=== PATIENT | female | born 1970 | race Caucasian/White ===

== ENCOUNTER 2017-01-05 19:17 | Emergency (ER) | payer OTHER ==
[2017-01-05 19:49] VITALS: TEMP 98.3; BMI 30.4
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
[2017-01-05] MEDS ORDERED: amLODIPine BESYLATE 5 MG TABLET (FP) PO ONE (21:42)
[2017-01-05] MEDS ORDERED: METOPROLOL SUCCINATE 100 MG TAB.SR.24H (FP) PO ONE (21:42)
[2017-01-05] MEDS ORDERED: HYDROCHLOROTHIAZIDE 25 MG TABLET (FP) PO ONE (21:43)
[2017-01-05] MEDS ORDERED: LISINOPRIL 20 MG TABLET (FP) PO ONE (21:43)
[2017-01-05] MEDS ORDERED: amLODIPine BESYLATE 5 MG TABLET (FP) ONE (21:56)
[2017-01-05] MEDS ORDERED: HYDROCHLOROTHIAZIDE 25 MG TABLET (FP) ONE (21:56)
[2017-01-05] MEDS ORDERED: LISINOPRIL 20 MG TABLET (FP) ONE (21:56)
[2017-01-05] MEDS ORDERED: METOPROLOL SUCCINATE 50 MG TAB.SR.24H (FP) ONE (21:56)
[2017-01-05] MEDS ORDERED: ACETAMINOPHEN 500 MG TABLET (FP) PO ONE (23:42)
[2017-01-06] MEDS ORDERED: ACETAMINOPHEN 325 MG TABLET (FP) ONE (00:08)
[2017-01-06 00:19] VITALS: BP 167/89; PULSE 78
--- NOTE | 2017-01-08 17:34 | EKG ---
Test Reason : Blood Pressure : / mmHG Vent. Rate : 077 BPM Atrial Rate : 077 BPM P-R Int : 188 ms QRS Dur : 094 ms QT Int : 436 ms P-R-T Axes : 028 -17 097 degrees QTc Int : 493 ms NORMAL SINUS RHYTHM SEPTAL INFARCT , AGE UNDETERMINED T WAVE ABNORMALITY, CONSIDER LATERAL ISCHEMIA ABNORMAL ECG WHEN COMPARED WITH ECG OF 02-NOV-2013 18:18, SEPTAL INFARCT IS NOW PRESENT T WAVE INVERSION LESS EVIDENT IN LATERAL LEADS Confirmed by SYBIL WHITTAKER MD ([id number]) on 01/08/2017 5:34:03 PM Referred By: Confirmed By:SYBIL WHITTAKER MD
== END 2017-01-06 00:24 | disposition home or self-care (01) ==
LOC: JER 19:17
DX: I10 Essential (primary) hypertension (principal); J30.2 Other seasonal allergic rhinitis
CPT/HCPCS: 93005; 93010; 99282-25

== ENCOUNTER 2017-12-03 08:59 | Emergency (ER) | payer OTHER ==
[2017-12-03 09:05] VITALS: BP 163/92; PULSE 55; TEMP 98.2; BMI 29.2
[2017-12-03] MEDS ORDERED: KETOROLAC TROMETHAMINE 60 MG/2 ML VIAL IM ONE (09:46)
[2017-12-03] MEDS ORDERED: KETOROLAC TROMETHAMINE 60 MG/2 ML VIAL ONE (09:48)
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
== END 2017-12-03 10:11 | disposition home or self-care (01) ==
LOC: JERFT 08:59
PROC: 3E0233Z Introduction of Anti-inflammatory into Muscle, Percutaneous Approach (ICD-10-PCS; principal; 2017-12-03)
DX: S13.4XXA Sprain of ligaments of cervical spine, initial encounter (principal); V43.52XA Car driver injured in collision with other type car in traffic accident, initial encounter; Y92.414 Local residential or business street as the place of occurrence of the external cause; W22.11XA Striking against or struck by driver side automobile airbag, initial encounter; Y93.89 Activity, other specified; Y99.8 Other external cause status; I10 Essential (primary) hypertension; E11.9 Type 2 diabetes mellitus without complications; Z87.09 Personal history of other diseases of the respiratory system; Z87.891 Personal history of nicotine dependence
CPT/HCPCS: 99281-25

== ENCOUNTER 2019-01-06 22:01 | Emergency (ER) | payer OTHER ==
[2019-01-06 22:15] VITALS: TEMP 98; BMI 28.8
[2019-01-06] MEDS ORDERED: ACETAMINOPHEN 1000 MG/100 ML VIAL (NON FORMULARY) IVPB ONE (22:36)
[2019-01-06] MEDS ORDERED: LABETALOL HCL 5 MG/1 ML (100MG/20 ML VIAL) IVPUSH ONE (22:48)
[2019-01-06] MEDS ORDERED: ACETAMINOPHEN INJECTION 100 ML IVPB ONE (22:53)
[2019-01-06] MEDS ORDERED: LABETALOL HCL 5 MG/1 ML (200MG/40ML VIAL) IVPB ONE (22:54)
[2019-01-06 23:01] LABS: BASO % 1.8 % (0-2.0); EOS % 5.5 % (0-4.5); HEMATOCRIT 40.7 % (32.4-45.2); HEMOGLOBIN 13.3 GM/dL (10.7-15.3); LYMPH % 34.5 % (8-40); MCH 26.9 pg (25.7-33.7); MCHC 32.5 g/dl (32.0-36.0); MEAN CELL VOLUME 82.7 fl (80-96); MEAN PLT VOLUME 7.6 fl (7.5-11.1); MONO % 4.8 % (3.8-10.2); NEUT % 53.4 % (42.8-82.8); PLATELET COUNT 310 K/MM3 (134-434); RBC 4.93 M/mm3 (3.60-5.2); RDW 14.2 % (11.6-15.6); WHITE BLOOD COUNT 9.5 K/mm3 (4.0-10.0)
--- NOTE | 2019-01-06 23:05 | PDOC ---
Documentation entered by Jose Alberto Campos SCRIBE, acting as scribe for Chuck Ward MD. Chuck Ward MD: This documentation has been prepared by the Beth baker Nirvannie, SCRIBE, under my direction and personally reviewed by me in its entirety. I confirm that the documentation accurately reflects all work, treatment, procedures, and medical decision making performed by me. Attending Attestation - Resident Resident Name: DanielkarelBraden - ED Attending Attestation I have performed the following: I have examined & evaluated the patient, The case was reviewed & discussed with the resident, I agree w/resident's findings & plan - HPI HPI: 01/06/19 22:50 The patient is a 48 year old female, with a significant past medical history of DM and HTN (noncompliant with medications), who presents to the emergency department with, chest pain, lower back pain, and headache. She denies any LOC or change in strength/sensation. Allergies: NKDA Social history: Smoker. - Physicial Exam PE: 01/07/19 00:32 GENERAL: Well-appearing, well-nourished. No apparent distress. HEENT:Normocephalic, atraumatic. PERRL, EOM intact, L sided facial droop including forehead CARDIOVASCULAR: Normal S1, S2. Regular rate and rhythm. PULMONARY: Clear to auscultation bilaterally. ABDOMEN: Soft, non-distended, non-tender, no CVAT EXTREMITIES: Normal ROM in all four extremities. Strength 5/5, No gross deformities. SKIN: Warm, dry. No rash NEUROLOGICAL: No focal neurological deficits. 01/07/19 00:35 - Medical Decision Making 01/07/19 00:36 48F with notably high BP c/o chest pain, back pain, headache, ddx includes all end organ sequelae of acute profound hypertension including cerebral hemorrage, ACS, aortic dissection f/u labs to eval for end organ damage including trops f/u cta cap f/u ct b analgesia dispo per clinical course 01/07/19 04:22 No signs of end organ damage on evaluation BP improved with analgesia Will follow up with PCP in 3 days
[2019-01-06 23:16] LABS: INR 0.97 (0.83-1.09); PROTHROMBIN TIME (PATIENT) 11.4 SEC (9.7-13.0)
--- NOTE | 2019-01-06 23:23 | PDOC ---
History of Present Illness - General Chief Complaint: Chest Pain Stated Complaint: LOWER BACK PAIN Time Seen by Provider: 01/06/19 22:16 History Source: Patient Exam Limitations: No Limitations - History of Present Illness Initial Comments: 01/06/19 23:18 48F with a PMH of HTN and DM (last taken medications in May 2018) who presents to the ER with complaints of sudden onset CP with radiation to her back, headache, and L arm numbness. The patient states that she woke up yesterday morning with chest pain that was L sided and radiated to her thoracic and lumbar spine. This pain continued to worsen until her presentation today. She also admits to L arm numbness since this morning. The patient states that she also developed a headache in this time. She denies SOB, fever, chills, nausea, vomiting. Past History - Past Medical History Allergies/Adverse Reactions: Allergies Allergy/AdvReac Type Severity Reaction Status Date / Time No Known Allergies Allergy Verified 01/06/19 22:15 Home Medications: Ambulatory Orders Lisinopril/Hydrochlorothiazide [Lisinopril-Hctz 20-25 mg Tab] 1 each PO DAILY Amlodipine Besylate [Norvasc -] 5 mg PO DAILY #30 tablet 11/03/13 Metoprolol Tartrate 200 mg PO BID 04/07/16 Verapamil HCl [Verapamil ER Pm] 100 mg PO DAILY 04/07/16 Cyclobenzaprine HCl 10 mg PO Q8H PRN #14 tablet 12/03/17 Naproxen 500 mg PO TID #30 tablet. 12/03/17 Anemia: No Asthma: Yes Cancer: No Cardiac Disorders: No CVA: No ([place]) COPD: No CHF: No Dementia: No Diabetes: Yes GI Disorders: No Disorders: No HTN: Yes Hypercholesterolemia: No Liver Disease: No Seizures: No Thyroid Disease: No - Surgical History Cardiac Surgery: Yes (CARDIAC CATH) Neurologic Surgery: No - Suicide/Smoking/Psychosocial Hx Smoking Status: No Smoking History: Current every day smoker Have you smoked in the past 12 months: Yes Number of Cigarettes Smoked Daily: 30 If you are a former smoker, when did you quit?: 2006 Information on smoking cessation initiated: No 'Breaking Loose' booklet given: 02/22/18 Hx Alcohol Use: No Drug/Substance Use Hx: Yes Substance Use Type: Marijuana Hx Substance Use Treatment: Yes ([facility] ) Review of Systems - Review of Systems Able to Perform ROS?: Yes Comments:: 01/06/19 23:23 GENERAL/CONSTITUTIONAL: No fever or chills. No weakness. HEAD, EYES, EARS, NOSE AND THROAT: No change in vision. No ear pain or discharge. No sore throat. CARDIOVASCULAR: + for CP. No palpitations or lightheadedness. RESPIRATORY: No cough, wheezing, shortness of breath, or hemoptysis. GASTROINTESTINAL: No nausea, vomiting, diarrhea, constipation, or abdominal pain. GENITOURINARY: No dysuria, frequency, hematuria, or change in urination. MUSCULOSKELETAL: + for back pain. No joint or muscle swelling or pain. SKIN: No rash or lesions. NEUROLOGIC: + for L arm numbness and h/a. No tingling, focal weakness, loss of consciousness, or change in strength/sensation. Is the patient limited Romanian proficient: No *Physical Exam - Vital Signs Last Vital Signs Temp Pulse Resp BP Pulse Ox 98.0 F 84 18 215/118 H 100 01/06/19 22:12 01/06/19 22:12 01/06/19 22:12 01/06/19 22:12 01/06/19 22:12 - Physical Exam Comments: 01/06/19 23:24 GENERAL: Well developed, well nourished. Awake and alert. In moderate distress. HEENT: Normocephalic, atraumatic. Hearing grossly normal. Moist mucous membranes. PERRLA, EOMI. No conjunctival pallor. Sclera are non-icteric. NECK: Supple. Full ROM. No JVD. CARDIOVASCULAR: Regular rate and rhythm. No murmurs, rubs, or gallops. PULMONARY: No evidence of respiratory distress. Lungs clear to auscultation bilaterally. No wheezing, rales or rhonchi. ABDOMINAL: Soft. Non-tender. Non-distended. No rebound or guarding. GENITOURINARY: No CVA tenderness bilaterally. MUSCULOSKELETAL: Normal range of motion at all joints. No bony deformities or tenderness. EXTREMITIES: No cyanosis. No clubbing. No edema. No calf tenderness or swelling. SKIN: Warm and dry. Normal capillary refill. No rashes. No jaundice. NEUROLOGICAL: Alert, awake, appropriate. Cranial nerves 2-12 grossly intact. No deficits to light touch and temperature in face, upper extremities and lower extremities. 5/5 strength in deltoids, biceps, triceps, quadriceps, hamstrings, and gastrocnemius. Normal speech. Gait is normal without ataxia. PSYCHIATRIC: Cooperative. Good eye contact. Appropriate mood and affect. ED Treatment Course - LABORATORY CBC & Chemistry Diagram: 01/06/19 22:50 01/06/19 22:50 - ADDITIONAL ORDERS Additional order review: Laboratory Results 01/06/19 22:50 PT with INR 11.40 INR 0.97 01/06/19 22:50 RBC 4.93 MCV 82.7 MCHC 32.5 RDW 14.2 D MPV 7.6 Neutrophils % 53.4 Lymphocytes % 34.5 Monocytes % 4.8 Eosinophils % 5.5 H Basophils % 1.8 - RADIOLOGY Radiology Studies Ordered: Category Date Time Status ABDOMEN CTA W/WO CONTRAST [CT] Stat CT Scan 01/06/19 22:28 Ordered CHEST CTA [CT] Stat CT Scan 01/06/19 22:[address] WITHOUT CONTRAST [CT] Stat CT Scan 01/06/19 23:17 Ordered CHEST X-RAY PORTABLE* [RAD] Stat Radiology 01/06/19 22:26 Taken - Medications Given in the ED: ED Medications Discontinued Medications Generic Name Dose Route Start Last Admin Trade Name Freq PRN Reason Stop Dose Admin Acetaminophen 1,000 mg 01/06/19 22:36 01/06/19 23:03 Ofirmev Injection - IVPB 01/06/19 22:37 1,000 mg ONCE ONE Administration Labetalol HCl 10 mg 01/06/19 22:48 01/06/19 23:02 Normodyne Injection - IVPUSH 01/06/19 22:49 10 mg ONCE ONE Administration Medical Decision Making - Medical Decision Making 01/06/19 23:20 48F with untreated HTN and DM who presents with CP radiating to her back and L arm numbness with elevated BP concerning for dissection. Pt immediately placed on monitor, given labetalol and ofirmev for BP and pain control, respectively. Pt's LMP is December 29 and she denies sexual activity since. Pt stable on monitor and in CT. Pending labs and imaging. EKG unremarkable. Preliminary read of CXR does not show widened mediastinum. However, due to elevations in BP and untreated HTN, concern for ICH (will r/o with CTH) and CTA of CAP pending. 01/07/19 01:[address] negative including head and dissection study. 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 Pt states her pain has subsided but her pack pain and headache are returning. Will treat with toradol and reglan. Pt has PCP f/u and I have instructed her to follow up tomorrow or thursday. Pt agrees. 01/07/19 02:11 Pt states that her symptoms have resolved. Will d/c with PCP f/u. *DC/Admit/Observation/Transfer Diagnosis at time of Disposition: High blood pressure Qualifiers: Hypertension type: unspecified Qualified Code(s): I10 - Essential (primary) hypertension Low back pain Qualifiers: Chronicity: unspecified Back pain laterality: right Sciatica presence: without sciatica Qualified Code(s): M54.5 - Low back pain - Discharge Dispostion Disposition: HOME Condition at time of disposition: Stable Decision to Admit order: No - Referrals - Patient Instructions Printed Discharge Instructions: DI for Atypical Chest Pain Additional Instructions: Your ER visit is not complete until your follow up with your primary care physician. Please follow up with your primary care physician in 1-2 days. Please return to the ER if you have any signs or symptoms of chest pain, shortness of breath, uncontrollable fever, chills, nausea, vomiting, numbness, tingling, or weakness in any part of your body, changes in vision, or slurred speech. Please return to the ER if symptoms persist, worsen, or new symptoms arise. - Post Discharge Activity
[2019-01-06 23:31] LABS: ALBUMIN 4.2 g/dl (3.4-5.0); ALK PHOS 82 U/L (45-117); ANION GAP 6 MMOL/L (8-16); BILIRUBIN,TOTAL 0.3 mg/dL (0.2-1); BLOOD UREA NITROGEN 17 mg/dL (7-18); CHLORIDE 101 mmol/L (98-107); CO2 28 mmol/L (21-32); CREATININE 0.8 mg/dL (0.55-1.3); GLUCOSE,RANDOM 98 mg/dL (74-106); POTASSIUM 3.8 mmol/L (3.5-5.1); SGOT/AST 19 U/L (15-37); SGPT/ALT 21 U/L (13-61); SODIUM 134 mmol/L (136-145); TOT PROT 7.8 g/dl (6.4-8.2)
[2019-01-06] MEDS ORDERED: SODIUM CHLORIDE 0.9% 1000 ML INFUS.BAG IV ONE (23:45)
[2019-01-07] MEDS ORDERED: KETOROLAC TROMETHAMINE 30 MG/1 ML VIAL IVPUSH ONE (01:33)
[2019-01-07] MEDS ORDERED: METOCLOPRAMIDE HCL INJECTION 10 MG/2 ML VIAL IVPB ONE (01:33)
[2019-01-07] MEDS ORDERED: KETOROLAC TROMETHAMINE 30 MG/1 ML VIAL ONE (01:37)
[2019-01-07] MEDS ORDERED: METOCLOPRAMIDE HCL INJECTION 10 MG/2 ML VIAL ONE (01:37)
[2019-01-07 02:27] VITALS: BP 166/95; PULSE 70
--- NOTE | 2019-01-07 10:39 | EKG ---
Test Reason : Blood Pressure : / mmHG Vent. Rate : 075 BPM Atrial Rate : 075 BPM P-R Int : 178 ms QRS Dur : 086 ms QT Int : 438 ms P-R-T Axes : 037 -24 101 degrees QTc Int : 489 ms NORMAL SINUS RHYTHM MINIMAL VOLTAGE CRITERIA FOR LVH, MAY BE NORMAL VARIANT SEPTAL INFARCT (CITED ON OR BEFORE 05-JAN-2017) T WAVE ABNORMALITY, CONSIDER LATERAL ISCHEMIA ABNORMAL ECG Confirmed by ASHLEY BRENNAN MD ([id number]) on 01/07/2019 10:39:13 AM Referred By: Confirmed By:ASHLEY BRENNAN MD
== END 2019-01-07 02:39 | disposition home or self-care (01) ==
LOC: JER 22:01
PROC: 3E033NZ Introduction of Analgesics, Hypnotics, Sedatives into Peripheral Vein, Percutaneous Approach (ICD-10-PCS; principal; 2019-01-06)
PROC: 3E0333Z Introduction of Anti-inflammatory into Peripheral Vein, Percutaneous Approach (ICD-10-PCS; 2019-01-06)
PROC: 3E033GC Introduction of Other Therapeutic Substance into Peripheral Vein, Percutaneous Approach (ICD-10-PCS; 2019-01-06)
PROC: 3E033GC Introduction of Other Therapeutic Substance into Peripheral Vein, Percutaneous Approach (ICD-10-PCS; 2019-01-06)
DX: I10 Essential (primary) hypertension (principal); M54.5 Low back pain; E11.9 Type 2 diabetes mellitus without complications; Z91.14 Patient's other noncompliance with medication regimen
CPT/HCPCS: 36415; 70450-TC; 71045-TC-FY; 71275-TC; 74175-TC; 80053; 82550; 82553; 84484; 84703; 85025; 85610; 86850; 86900; 86901; 93005; 93010; 99281-25; J0131; J7030